=== PATIENT | female | born 1995 | race Caucasian/White ===

== ENCOUNTER → 2018-04-07 | Outpatient (CLI) | payer OTHER, SELFPAY | LOC: M WUC 15:13 | DX: R06.02 Shortness of breath (principal) | CPT/HCPCS: 71046 ==

== ENCOUNTER 2018-12-03 21:22 | Outpatient (CLI) | payer OTHER ==
[2018-12-03 22:29] VITALS: BP 121/79
--- NOTE | 2018-12-03 22:54 | IPNPDOC ---
Text Note Date of Service The patient was seen on 12/03/18. NOTE Triage Note Phillip is a 23yo at approx 31wk who presents this evening for "ctx" and "blood tinged mucous". She notes excellent movement. She thinks her belly is tightening at regular intervals for the last few hours, but she is not completely sure if she is having ctx. She notes no odor to her discharge or any irritation, just a little bit of blood streaking in some vaginal mucous noted earlier in the evening. No LOF. No f/c/n/v/CP/SOB. 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 No blood whatsoever noted on exam glove. FHRT: Cat I with bl 130, +accels, -decels, mod topher- reassuring for gest age [place]: no ctx at all Assessment: Phillip is a 23yo at approx 31wk with no evidence of PTL based on SCE and no ctx on toco. No blood noted in discharge. Vitals wnl. Reassuring status. Plan: -safe for discharge home -return precautions given -continue routine OB visits Dr. Debby Sapp MD VS,Luli, I+O VSLuli, I+O Vital Signs Date Time Temp Pulse Resp B/P (MAP) Pulse Ox O2 Delivery O2 Flow Rate FiO2 12/03/18 22:29 98.1 121/79 (93) Debby Sapp MD Dec 03, 2018 22:54
== END 2018-12-03 22:48 | disposition home or self-care (01) ==
LOC: M LDO 21:22
PROVIDERS: ATTEND Obstetrics & Gynecology
DX: O47.9 False labor, unspecified (principal); Z3A.31 31 weeks gestation of pregnancy
CPT/HCPCS: 59025; G0378; G0463

== ENCOUNTER 2019-01-28 12:23 | Outpatient (CLI) | payer OTHER ==
[~2019-01-28] VITALS: Ht 175.3 cm; Wt 100.2 kg
[2019-01-28] MEDS ORDERED: ZOLOFT PO (12:49)
[2019-01-28] MEDS ORDERED: PRENTAB9 PO (12:49)
[2019-01-28 12:55] VITALS: BP 138/84
--- NOTE | 2019-01-28 13:55 | NUR ---
[facility] L&D Triage Note: S: Phillip is a 23 y/o G1 at 39+0 weeks via L/1TUS who presents for feeling less than normal FM since last evening and some contractions. She denies VB/LOF. She endorses FM but describes movement as less than normal. Her has been c/b anxiety (on zoloft 75mg daily), excessive TWG, and thrombocytopenia- last PLT count 113 at 38 weeks. GBS NEG. O: VSS/AF GEN: A&Ox3 ABD: Gravid; NNTP; relaxed uterine resting tone EXT: NEG homans; no edema FHR 135 BL, moderate variability; + accelerations; no decelerations TOCO: irritability; no palpable ctx SCE: /-3 no change since examination on Dec during outpatient clinic encounter TAUS: SIUP; + FM; + FCA; anterior placenta. OSEI 8.21cm. A/P: 23 y/o G1 at 39 weeks. Reassuring status. Not in labor. No evidence of ROM. Extensive review of warning signs and return precautions. Reinforced importance of daily movement assessments and need for 39 week plt count re-assessment. She reports understanding w/o questions/concerns. She has scheduled ANALISA with MAJ Castellanos tomorrow. DC'd home at this time.
== END 2019-01-28 13:56 | disposition home or self-care (01) ==
LOC: M LDO 12:23
PROVIDERS: ATTEND Obstetrics & Gynecology
DX: O36.8130 Decreased fetal movements, third trimester, not applicable or unspecified (principal); Z3A.39 39 weeks gestation of pregnancy
CPT/HCPCS: 59025; 76815; G0378; G0463

== ENCOUNTER 2019-02-07 04:47 | Outpatient (CLI) | payer OTHER ==
[~2019-02-07] VITALS: Ht 175.3 cm; Wt 100.9 kg
[~2019-02-07 04:47] MED LIST: PRENTAB9 PO; ZOLOFT PO
[2019-02-07 05:02] VITALS: BP 136/96
[2019-02-07 05:19] VITALS: BP 134/93
--- NOTE | 2019-02-07 09:36 | HPE ---
DATE OF ADMISSION: 02/07/2019 This lady is a 22-year-old, 1, para 0, last menstrual period (LMP) 04/30/2018, expected date of confinement (EDC) 02/04/2019 at 40 and 2 weeks gestation with history of spotting post intercourse. Risk Factors: She has anxiety and is on Zoloft 75 mg, increased weight gain and has low platelets. Labs: A+. HIV negative. Hepatitis negative. RPR negative. Rubella immune. Varicella immune. Pap normal. Urine negative. Gonorrhea and chlamydia negative. 1-hour glucose 115. Her platelets have gone from 140 to 113 and they are being monitored on a weekly basis. GBS is negative. On examination, no distress. Symphysis fundus height is 40, vertex. Category one strip. Nontender uterus. Cervix is posterior, thick ,1 cm, -4 station. No vaginal bleeding noted on the finger. The rest examination unremarkable. Normocephalic, atraumatic. Neck full range of motion. Pupils equal and reactive to light. Chest is clear bilaterally to bases. No wheezes or rhonchi. No costovertebral angle (CVA) tenderness. No deep vein thrombosis (DVT), pulmonary embolus (PE) or superficial phlebitis. She has no rashes, lesions or pruritus. No arthralgia or myalgia. No complaints of cough, wheeze, shortness of breath or dyspnea on exertion. Not bleeding. Neuro complete. No incontinency or frequency. No nausea, vomiting, diarrhea or constipation. No diabetic issues. She has no significant past FINANCIAL SECRETARY, medical or surgical history. No family history. She is to a soldier. No domestic violence. Does not smoke, drink or abuse drugs. In summary, we have post intercourse spotting with occasional tightenings and contractions and category one strip. She was discharged with instructions. She has an induction of labor booked for Sunday.
== END 2019-02-07 06:25 | disposition home or self-care (01) ==
LOC: M LDO 04:47
PROVIDERS: ATTEND Obstetrics & Gynecology
DX: O26.853 Spotting complicating pregnancy, third trimester (principal); Z3A.40 40 weeks gestation of pregnancy
CPT/HCPCS: 59025; G0378; G0463